=== PATIENT | female | born 1945 | race African-American/Black ===

== ENCOUNTER 2023-11-05 18:23 | Emergency (ER) | payer MEDICARE ==
[~2023-11-05] VITALS: Ht 165.1 cm; Wt 75.0 kg
[2023-11-05 18:30] VITALS: TEMP 98.5
[2023-11-05] MEDS ORDERED: AZITHROMYCIN 500MG/250ML 250 ML IV SCH (19:30)
[2023-11-05 19:32] LABS: BASOPHILS % 0.5 % (0.0-2.0); EOSINOPHILS % 1.9 % (0.0-5.0); HEMATOCRIT. 37.4 % (36.0-48.0); HEMOGLOBIN. 12.3 g/dL (12.0-16.0); LYMPHOCYTES % 12.8 % (20.0-50.0); MEAN CORPUSCULAR HEMOGLOBIN 29.4 pg (28.0-32.0); MEAN PLATELET VOLUME 8.1 fl (7.4-10.4); MONOCYTES % 6.5 % (2.0-8.0); NEUTROPHILS % 78.3 % (40.0-76.0); PLATELET 268 x1000/uL (130-400); RED CELL DISTRIBUTION WIDTH 14.6 % (11.6-14.6); WHITE BLOOD COUNT 10.5 x1000/uL (4.5-11.0)
[2023-11-05 19:50] LABS: ALANINE AMINOTRANSFERASE 17 IU/L (10-49); ALBUMIN 4.8 g/dL (3.2-4.8); ASPARTATE AMINOTRANSFERASE 40 IU/L (<34); BILIRUBIN TOTAL 0.4 mg/dL (0.1-1.0); CALCIUM 9.7 mg/dL (8.7-10.4); CARBON DIOXIDE 27 mEq/L (21-32); CHLORIDE 104 mEq/L (98-107); CREATININE 0.9 mg/dL (0.6-1.0); GLUCOSE 98 mg/dL (70-105); POTASSIUM 3.9 mEq/L (3.5-5.1); PROTEIN TOTAL 8.3 g/dL (6.0-8.3); SODIUM 137 mEq/L (136-145); TROPONIN I HIGH SENSITIVITY 30 ng/L (3.0-34); UREA NITROGEN BLOOD 9 mg/dL (9-23)
[2023-11-05] MEDS: PREDNISONE 20MG TABLET PO STA (20:51)
[2023-11-05] MEDS: AZITHROMYCIN 500 MG TABLET PO NR (20:52)
[2023-11-05 21:06] LABS: CLARITY URINE CLEAR (CLEAR); COLOR URINE YELLOW (YELLOW); GLUCOSE URINE NEGATIVE (NEGATIVE); KETONES URINE NEGATIVE (NEGATIVE); LEUKOCYTE ESTERASE URINE 1+ (NEGATIVE); NITRITE URINE NEGATIVE (NEGATIVE); OCCULT BLOOD URINE NEGATIVE (NEGATIVE); PH URINE 6.5 (4.5-8.0); PROTEIN URINE NEGATIVE (NEGATIVE); SPECIFIC GRAVITY URINE 1.009 (1.005-1.030); UROBILINOGEN URINE 0.2 E.U./dL (0.2-1.0)
[2023-11-05 21:10] LABS: TROPONIN I HIGH SENSITIVITY 33 ng/L (3.0-34)
[2023-11-05] MEDS: IPRATROPIUM BROMIDE (0.02%) 0.5MG/2.5ML NEB HHN STA (21:31)
[2023-11-05] MEDS: ALBUTEROL (0.083%) 2.5MG/3ML NEB HHN SCH (21:31)
[2023-11-05 21:32] VITALS: PULSE 82; RESP 20; O2SAT 97
[2023-11-05 21:58] LABS: TROPONIN I HIGH SENSITIVITY 30 ng/L (3.0-34)
[2023-11-05 22:08] LABS: BACTERIA URINE NONE SEEN; RBC URINE NONE SEEN /hpf (0-2); SQUAMOUS EPITHELIAL CELL URINE RARE /lpf (RARE/1+)
[2023-11-05] MEDS ORDERED: AZIT250T12 MT (23:02)
[2023-11-05] MEDS ORDERED: P20 MT (23:02)
[2023-11-05 23:37] VITALS: BP 153/80; PULSE 100; RESP 18
== END 2023-11-05 23:39 | disposition home or self-care (01) ==
LOC: ER 18:23
DX: J44.1 Chronic obstructive pulmonary disease with (acute) exacerbation (principal); I25.2 Old myocardial infarction
CPT/HCPCS: 99285; 71045; 80053; 81003; 83880; 85025; 84484; 94640; 93005; 36415; J7512